=== PATIENT | male | born 1995 | race Two or more races ===

== ENCOUNTER 2018-05-08 09:19 | Emergency (ER) | payer OTHER ==
[2018-05-08 09:53] VITALS: BP 125/64
--- NOTE | 2018-05-08 11:52 | ED Physician Documentation ---
History of Present Illness - Stated complaint Stated Complaint: SORE THROAT - Chief complaint Chief Complaint: Heent - Additonal information Additional information: hx from pt 23 y/o male [place] sore throat dry cough some myalgias for 4 days no NVD no travel Review of Systems Constitutional: reports: Myalgias. denies: Fever Throat: reports: Sore throat Respiratory: reports: Cough GI: denies: Vomiting, Diarrhea PD PAST MEDICAL HISTORY - Past Medical History Past Medical History: No - Past Surgical History Past Surgical History: No - Present Medications Home Medications: Ambulatory Orders Medication Instructions Recorded Confirmed Benzonatate [Tessalon Perle] 100 mg PO TID PRN #20 capsule 05/08/18 Dextromethorphan/Benzocaine 1 each PO Q4H PRN #20 lozenge 05/08/18 [Cepacol Sorethroat-Cough Ana Paula] - Allergies Allergies/Adverse Reactions: Allergies Allergy/AdvReac Type Severity Reaction Status Date / Time No Known Drug Allergies Allergy Verified 05/08/18 09:53 - Social History Does the pt smoke?: Yes Smoking Status: Current every day smoker Does the pt drink ETOH?: No Does the pt have substance abuse?: No - Immunizations Immunizations are current?: Yes - POLST Patient has POLST: No PD ED PE NORMAL - Vitals Vital signs reviewed: Yes - General General: Alert and oriented X 3 - HEENT HEENT: PERRL, Moist mucous membranes. No: Ears normal (R TM congetsed but no erythema), Pharynx benign (erythema no exudate) - Neck Neck: Supple, no meningeal sign. No: No adenopathy (small anterior no posterior) - Cardiac Cardiac: RRR - Respiratory Respiratory: No respiratory distress, Clear bilaterally - Abdomen Abdomen: Soft, Non tender, No organomegaly Results - Vitals Vitals: Vital Signs - 24 hr 05/08/18 09:51 Temperature 36.7 C Heart Rate 85 Respiratory 18 Rate Blood Pressure 125/64 O2 Saturation 100 Oxygen O2 Source Room air - Labs Labs: Laboratory Tests 05/08/18 10:25 Group A Strep Rapid Negative Departure - Departure Disposition: 01 Home, Self Care Clinical Impression: Viral URI with cough Condition: Good Instructions: ED URI Viral Follow-Up: JARRETT Sloan [Provider Group] Prescriptions: Benzonatate [Tessalon Perle] 100 mg PO TID PRN #20 capsule PRN Reason: Cough Dextromethorphan/Benzocaine [Cepacol Sorethroat-Cough Ana Paula] 1 each PO Q4H PRN #20 lozenge PRN Reason: sore throat Comments: The rapid strep test was negative An official throat culture will also be run and you will be called if it is positive and antibiotics are needed. But right now it appears this is a viral infection - so antibiotics are not indicated - but i have prescribed medication to ease your symptoms and written a note for work Forms: Activity restrictions
== END 2018-05-08 12:04 | disposition home or self-care (01) ==
LOC: ED 09:19
DX: J06.9 Acute upper respiratory infection, unspecified (principal); F17.200 Nicotine dependence, unspecified, uncomplicated
CPT/HCPCS: 87070; 87430; 99283